=== PATIENT | male | born 1965 | race Caucasian/White ===

== ENCOUNTER 2018-04-04 12:13 | Emergency (ER) | payer OTHER ==
[2018-04-04 13:30] LABS: ADD MAN DIFF? NO
[2018-04-04 13:38] LABS: WHITE BLOOD COUNT 9.8 10^3/ul (4.8-10.8)
[2018-04-04 13:38] LABS: BASOPHIL # 0.1 10^3/ul (0.0-0.1); BASOPHILS % 0.5 % (0.0-2.0); EOSINOPHILS # 0.4 10^3/ul (0.0-0.5); EOSINOPHILS % 4.3 % (0.0-7.0); IMMATURE GRANS #M 0.03 10^3/ul; IMMATURE GRANS % (M) 0.3 %; LYMPHOCYTES # 2.5 10^3/ul (0.8-2.9); LYMPHOCYTES % 25.7 % (15.0-51.0); MEAN CORPUSCULAR HEMOGLOBIN 29.4 pg (29.0-33.0); MEAN CORPUSCULAR HGB CONC 33.3 g/dl (32.0-37.0); MEAN CORPUSCULAR VOLUME 88.2 fl (82.0-101.0); MEAN PLATELET VOLUME 10.2 fl (7.4-10.4); MONOCYTE # 0.7 10^3/ul (0.3-0.9); MONOCYTES % 7.2 % (0.0-11.0); NEUTROPHIL # 6.1 10^3/ul (1.6-7.5); PLATELET COUNT 255 10^3/UL (140-415); RED BLOOD COUNT 4.76 10^6/ul (4.70-6.10)
[2018-04-04 13:56] LABS: INR 0.84; PROTIME 11.6 Sec (11.9-14.9); PT RATIO 0.9
[2018-04-04 13:57] LABS: PARTIAL THROMBOPLASTIN TIME 27.4 Sec (25.0-35.0)
[2018-04-04 13:59] LABS: ALANINE AMINOTRANSFERASE 50 IU/L (13-69); ALBUMIN 4.4 g/dl (3.3-4.9); ALBUMIN/GLOBULIN RATIO 1.51; ALKALINE PHOSPHATASE 60 IU/L (42-121); ANION GAP 15 (8-16); ASPARTATE AMINO TRANSFERASE 43 IU/L (15-46); BILIRUBIN,INDIRECT 0.6 mg/dl (0-1.1); BILIRUBIN,TOTAL 0.6 mg/dl (0.2-1.3); BLOOD UREA NITROGEN 18 mg/dl (7-20); CALCIUM 9.7 mg/dl (8.4-10.2); CARBON DIOXIDE 23 mmol/L (21-31); CHLORIDE 110 mmol/L (97-110); CREATININE 1.29 mg/dl (0.61-1.24); GLUCOSE 112 mg/dl (70-220); LIPASE 139 U/L (23-300); POTASSIUM 4.9 mmol/L (3.5-5.1); SODIUM 143 mmol/L (135-144); TOTAL PROTEIN 7.3 g/dl (6.1-8.1)
[2018-04-04 14:58] LABS: URINE PH (Dip) POC 5.5 (5.0-8.5)
[2018-04-04 14:58] LABS: URINE BLOOD (Dip) POC Trace-intact (NEGATIVE); URINE GLUCOSE (Dip) POC Negative (NEGATIVE); URINE KETONES (Dip) POC 2+ (NEGATIVE); URINE LEUKOCYTE EST (Dip) POC Negative (NEGATIVE); URINE NITRITE (Dip) POC Negative (NEGATIVE); URINE TOTAL PROTEIN POC Negative (NEGATIVE)
[2018-04-04] MEDS ORDERED: HYDROCODONE/APAP (5/325) TAB PO (16:00)
[2018-04-04] MEDS: LIDOCAINE 2% 20 ML UROJET SYRINGE MM (16:08)
[2018-04-04] MEDS: ONDANSETRON 4 MG INJ IV (16:32)
[2018-04-04] MEDS: morphine 2 MG INJ IV (16:32)
== END 2018-04-04 17:05 | disposition home or self-care (01) ==
LOC: E/R 12:13
DX: R33.9 Retention of urine, unspecified (principal); I10 Essential (primary) hypertension; Z79.82 Long term (current) use of aspirin; Z85.46 Personal history of malignant neoplasm of prostate
CPT/HCPCS: 36415; 80053; 81003; 83690; 85025; 85610; 85730; 87086; 96374; 96375; 99284-25

== ENCOUNTER 2018-04-05 17:34 | Emergency (ER) | payer OTHER ==
[2018-04-05] MEDS: HYDROCODONE/APAP (5/325) TAB PO (19:55)
[2018-04-05 20:08] LABS: ADD MAN DIFF? NO
[2018-04-05 20:13] LABS: WHITE BLOOD COUNT 12.4 10^3/ul (4.8-10.8)
[2018-04-05 20:13] LABS: BASOPHIL # 0.1 10^3/ul (0.0-0.1); BASOPHILS % 0.4 % (0.0-2.0); EOSINOPHILS # 0.4 10^3/ul (0.0-0.5); HEMATOCRIT 43.1 % (42.0-52.0); HEMOGLOBIN 14.2 g/dl (14.0-18.0); IMMATURE GRANS #M 0.04 10^3/ul; IMMATURE GRANS % (M) 0.3 %; LYMPHOCYTES # 3.7 10^3/ul (0.8-2.9); LYMPHOCYTES % 29.5 % (15.0-51.0); MEAN CORPUSCULAR HEMOGLOBIN 29.7 pg (29.0-33.0); MEAN CORPUSCULAR HGB CONC 32.9 g/dl (32.0-37.0); MEAN CORPUSCULAR VOLUME 90.2 fl (82.0-101.0); MEAN PLATELET VOLUME 10.2 fl (7.4-10.4); MONOCYTES % 7.8 % (0.0-11.0); NEUTROPHIL # 7.3 10^3/ul (1.6-7.5); PLATELET COUNT 240 10^3/UL (140-415); RED BLOOD COUNT 4.78 10^6/ul (4.70-6.10)
[2018-04-05 20:29] LABS: URIC ACID 10.9 mg/dl (3.1-7.9)
[2018-04-05 20:31] LABS: ALANINE AMINOTRANSFERASE 55 IU/L (13-69); ALBUMIN 4.6 g/dl (3.3-4.9); ALBUMIN/GLOBULIN RATIO 1.48; ALKALINE PHOSPHATASE 60 IU/L (42-121); ANION GAP 16 (8-16); ASPARTATE AMINO TRANSFERASE 41 IU/L (15-46); BILIRUBIN,INDIRECT 0.7 mg/dl (0-1.1); BILIRUBIN,TOTAL 0.7 mg/dl (0.2-1.3); BLOOD UREA NITROGEN 16 mg/dl (7-20); CALCIUM 9.4 mg/dl (8.4-10.2); CARBON DIOXIDE 23 mmol/L (21-31); CHLORIDE 108 mmol/L (97-110); CREATININE 1.31 mg/dl (0.61-1.24); GLUCOSE 94 mg/dl (70-220); POTASSIUM 4.6 mmol/L (3.5-5.1); SODIUM 142 mmol/L (135-144); TOTAL PROTEIN 7.7 g/dl (6.1-8.1)
[2018-04-05] MEDS: CEPHALEXIN 500 MG CAP PO (21:02)
[2018-04-05] MEDS: TRIMETHOPRIM/SULFAMETHOX (DS) TAB PO (21:02)
[2018-04-05] MEDS: KETOROLAC 30 MG INJ IM ×2 (21:03→21:10)
== END 2018-04-05 21:41 | disposition home or self-care (01) ==
LOC: FTE 21:41
DX: M25.571 Pain in right ankle and joints of right foot (principal); L03.115 Cellulitis of right lower limb; Z87.891 Personal history of nicotine dependence; Z79.82 Long term (current) use of aspirin
CPT/HCPCS: 36415; 73630; 80053; 84560; 85025; 99283-25

== ENCOUNTER 2018-05-17 07:02 | Observation (INO) | payer OTHER ==
[~2018-05-17 07:02] MED LIST: LIDOCAINE 2% (SDV) 5 ML INJ
[2018-05-17] MEDS: CIPROFLOXACIN 400MG/D5W 200 ML IVPB (09:00)
[2018-05-17] MEDS ORDERED: PROPOFOL 20 ML (11:15)
[2018-05-17] MEDS ORDERED: ROCURONIUM 50 MG INJ (11:15)
[2018-05-17] MEDS ORDERED: ONDANSETRON 4 MG INJ (12:13)
[2018-05-17] MEDS ORDERED: SUGAMMADEX SODIUM 200 MG/2 ML VIAL IV (12:13)
[2018-05-17] MEDS ORDERED: HYDROmorphONE 1 MG/5 ML IV SYRINGE IV ×2 (12:30)
[2018-05-17] MEDS ORDERED: MAGNESIUM HYDROXIDE 30ML CUP PO (12:30)
[2018-05-17] MEDS ORDERED: ONDANSETRON 4 MG INJ IV (12:30)
[2018-05-17] MEDS ORDERED: hydrALAzine 20 MG INJ IV (12:30)
[2018-05-17] MEDS ORDERED: LABETALOL HCL 20MG INJ IV (12:30)
[2018-05-17] MEDS: DEXTROSE 5%-0.45% NACL 1,000 ML IV ×2 (14:37→23:57)
[2018-05-17] MEDS: HYDROCODONE/APAP (5/325) TAB PO ×2 (15:23→21:07)
[2018-05-17] MEDS: CIPROFLOXACIN 500 MG TAB PO (18:12)
[2018-05-17] MEDS: ATORVASTATIN 10 MG TAB PO (21:07)
[2018-05-17] MEDS: TAMSULOSIN (SR) 0.4 MG CAP PO (21:07)
[2018-05-17] MEDS: DOCUSATE SODIUM 100 MG CAP PO (21:07)
[2018-05-17] MEDS: METOPROLOL 25 MG TAB PO (21:08)
[2018-05-18] MEDS: HYDROCODONE/APAP (5/325) TAB PO ×2 (01:42→08:15)
[2018-05-18] MEDS: CIPROFLOXACIN 500 MG TAB PO (05:40)
[2018-05-18 06:18] LABS: ADD MAN DIFF? NO
[2018-05-18 06:27] LABS: BASOPHILS % 0.3 % (0.0-2.0); EOSINOPHILS # 0.1 10^3/ul (0.0-0.5); EOSINOPHILS % 0.6 % (0.0-7.0); HEMATOCRIT 38.5 % (42.0-52.0); LYMPHOCYTES # 2.1 10^3/ul (0.8-2.9); LYMPHOCYTES % 14.2 % (15.0-51.0); MEAN CORPUSCULAR HGB CONC 33.8 g/dl (32.0-37.0); MEAN CORPUSCULAR VOLUME 88.9 fl (82.0-101.0); MEAN PLATELET VOLUME 10.7 fl (7.4-10.4); MONOCYTE # 1.3 10^3/ul (0.3-0.9); MONOCYTES % 8.9 % (0.0-11.0); NEUTROPHILS % 75.7 % (39.0-77.0); PLATELET COUNT 215 10^3/UL (140-415); RED BLOOD COUNT 4.33 10^6/ul (4.70-6.10)
[2018-05-18 06:27] LABS: WHITE BLOOD COUNT 14.5 10^3/ul (4.8-10.8)
[2018-05-18] MEDS: DOCUSATE SODIUM 100 MG CAP PO (08:14)
[2018-05-18] MEDS: ALLOPURINOL 300 MG TAB PO (08:14)
[2018-05-18] MEDS: METOPROLOL 25 MG TAB PO (08:15)
[2018-05-18 13:38] LABS: ANION GAP 13 (8-16); BLOOD UREA NITROGEN 16 mg/dl (7-20); CALCIUM 10.1 mg/dl (8.4-10.2); CARBON DIOXIDE 29 mmol/L (21-31); CHLORIDE 104 mmol/L (97-110); GLUCOSE 103 mg/dl (70-220); POTASSIUM 4.3 mmol/L (3.5-5.1); SODIUM 142 mmol/L (135-144)
== END 2018-05-18 14:29 | disposition home or self-care (01) ==
LOC: SDS 07:02 → MS1 12:57 → SDS 12:31 → REC 12:31 → MS1 14:23
PROVIDERS: Urology
DX: C61 Malignant neoplasm of prostate (principal)
CPT/HCPCS: 52601; 80048; 85025; 88305